=== PATIENT | female | born 1975 | race Two or more races ===

== ENCOUNTER 2017-10-06 22:03 | Emergency (ER) | payer MEDICAID ==
[~2017-10-06] VITALS: Ht 157.5 cm; Wt 93.0 kg
[2017-10-06 22:58] LABS: Eosinophils # (auto) 0.1 uL; Hemoglobin 9.3 g/dL (12.2-16.2)
[2017-10-06 23:01] LABS: Basophils # (auto) 0 uL; Basophils % (auto) 0.5 % (0.0-2.0); Eosinophils % (auto) 1.4 % (0.0-7.0); Hematocrit 29.8 % (36.0-46.0); Lymphocytes # (auto) 3.1 uL; Lymphocytes % (auto) 36.4 % (10.0-50.0); Mean Corpuscular Hemoglobin 20.3 pg (28.0-32.0); Mean Corpuscular Hgb Conc. 31.3 g/dL (32.0-36.0); Mean Corpuscular Volume 65.1 fL (80.0-100.0); Monocytes # (auto) 0.8 uL; Neutrophils # (auto) 4.5 uL; Neutrophils % (auto) 52.7 % (37.0-80.0); Nucleated Red Blood Cells % 0.2 %; Platelet Count (auto) 510 10^3/uL (140-450); Red Blood Cells 4.58 10^6/uL (4.0-5.20); Red Cell Distribution Width 19.9 % (11.8-14.3); White Blood Cell 8.6 10^3/uL (4.4-10.8)
[2017-10-06 23:05] LABS: Urine WBC None Seen /hpf (0 - 5)
[2017-10-06 23:15] LABS: Albumin 3.4 g/dL (3.4-5.0); Anion Gap 8 (5-15); Aspartate Aminotransferase 22 U/L (15-37); BUN/Creatinine Ratio 30.2; Blood Urea Nitrogen 19 mg/dL (7-18); Calcium 8.5 mg/dL (8.5-10.1); Carbon Dioxide 24 mmol/L (21-32); Chloride 109 mmol/L (98-107); GFR African American 135 mL/min; GFR Non-African American 111 mL/min; Glucose 93 mg/dL (74-106); Potassium 3.7 mmol/L (3.5-5.1); Sodium 141 mmol/L (136-145)
[2017-10-06 23:20] LABS: Alanine Aminotransferase 26 U/L (13-56); Alkaline Phosphatase 65 U/L (45-117); Bilirubin, Total 0.2 mg/dL (0.2-1.0); Total Protein 6.9 g/dL (6.4-8.2)
[2017-10-06 23:41] LABS: Urine Bacteria NONE SEEN /hpf (None Seen); Urine Blood 3+ /uL (Negative)
[2017-10-06 23:42] LABS: Urine Specific Gravity 1.041 (1.001-1.035)
[2017-10-07] MEDS ORDERED: MORPHINE SULF INJ 2 MG/ML SYRINGE 1ML IV ONE (03:00)
[2017-10-07] MEDS ORDERED: ONDANSETRON HCL 4 MG/2 ML VIAL IV ONE (03:00)
[2017-10-07 03:59] VITALS: BP 107/64
[2017-10-07] MEDS ORDERED: ACETAMINOPHEN/CODEINE#3 (300/30mg) TAB PO ONE (05:15)
== END 2017-10-07 05:56 | disposition home or self-care (01) ==
LOC: ER 22:19
DX: N20.0 Calculus of kidney (principal); R11.10 Vomiting, unspecified
CPT/HCPCS: 36415; 74176; 80053; 81001; 81025; 84484; 85025; 96374; 96375; 99285; J2270; J2405

== ENCOUNTER 2024-08-24 12:00 | Emergency (ER) | payer MEDICAID ==
[~2024-08-24] VITALS: Ht 157.5 cm; Wt 100.0 kg
--- NOTE | 2024-08-24 12:24 | ED.PDOC ---
Psychiatric HPI Comments 48 y.o female with PMHx of depression and anxiety, presents to the ED via EMS s/p Overdose today. EMS reports patient took multiple tablets of her medication today due to her son's arguing at home today. Patient reports no HI or SI but states " I just wanted to forget everything". Patient presents drowsy and lethargic. Patient took 10 x 50mg tablets of Tradazone. EMS called poison control who advised to observe patient but no charcoal activation due to drowsiness at this time. Patient denies any previous history of HI or SI. No other symptoms reported. Chief Complaint: Overdose Time Seen by MD: 12:12 Reviewed Notes: Nurses Notes, Transportation Project Manager Notes, Medications, Allergies Information Source: Patient, Emergency Med Personnel Mode of Arrival: EMS Severity: Able to Care for Self Severity of Pain: None Severity of Mental Status: Moderate Severity of Symptoms: Moderate Timing: Hours Duration: Since onset Presents with: Depression, Anxiety Ingestion: Intentional Circumstance: None Current substance abuse: None Stressors: Family History of: Depression, Anxiety Associated signs and symptoms: Anxiety Past Medical History PAST MEDICAL HISTORY: Anxiety, Depression Surgical History: (3) [employer] History: Ovarian Cysts, Uterine Fibroids Family History Family History: Unknown Social History Smoker: Non-Smoker Alcohol: Denies ETOH Use Drugs: Denies Drug Use Lives In: Home Constitutional: denies: chills, diaphoresis, fatigue, fever, malaise, sweats, weakness, others EENTM: denies: blurred vision, double vision, ear bleeding, ear discharge, ear drainage, ear pain, ear ringing, eye pain, eye redness, hearing loss, mouth pain, mouth swelling, nasal discharge, nose bleeding, nose congestion, nose pain, photophobia, tearing, throat pain, throat swelling, voice changes, others Respiratory: denies: cough, hemoptysis, orthopnea, SOB at rest, shortness of breath, SOB with excertion, stridor, wheezing, others Cardiovascular: denies: chest pain, dizzy spells, diaphoresis, Dyspnea on exertion, edema, irregular heart beat, left arm pain, lightheadedness, palpitations, PND, syncope, others Gastrointestinal: denies: abdomen distended, abdominal pain, blood streaked bowels, constipated, diarrhea, dysphagia, difficulty swallowing, hematemesis, melena, nausea, poor appetite, poor fluid intake, rectal bleeding, rectal pain, vomiting, others Genitourinary: denies: abnormal vagina bleeding, burning, dyspareunia, dysuria, flank pain, frequency, hematuria, incontinence, pain, , vagina discharge, urgency, others Neurological: denies: dizziness, fainting, headache, left sided numbness, left sided weakness, numbness, paresthesia, pre-existing deficit, right sided numbness, right sided weakness, seizure, speech problems, tingling, tremors, weakness, others Musculoskeletal: denies: back pain, gout, joint pain, joint swelling, muscle pain, muscle stiffness, neck pain, others Integumetry: denies: bruises, change in color, change in hair/nails, dryness, laceration, lesions, lumps, rash, wounds, others Allergic/Immunocompromised: denies: Difficulty Healing, Frequent Infections, Hives, Itching, others Hematologic/Lymphatic: denies: anemia, blood clots, easy bleeding, easy bruising, swollen glands, others Endocrine: denies: excessive hunger, excessive sweating, excessive thirst, excessive urination, flushing, intolerance to cold, intolerance to heat, unexplained weight gain, unexplained weight loss, others Psychiatric: reports: anxiety, depression; denies: bipolar disorder, hopeless, panic disorder, schizophrenia, sleepless, suicidal, others All Other Systems: Reviewed and Negative Physical Exam General Appearance: No Apparent Distress HEENT: Normal ENT Inspection, Pharynx Normal, TMs Normal Neck: Full Range of Motion, Non-Tender, Normal, Normal Inspection Respiratory: Chest Non-Tender, Lungs Clear, No Accessory Muscle Use, No Respiratory Distress, Normal Breath Sounds Cardiovascular: No Edema, No JVD, No Murmur, No Gallop, Normal Peripheral Puls es, Regular Rate/Rhythm Breast Exam: Deferred Gastrointestinal: No Organomegaly, Non Tender, No Pulsatile Mass, Normal Bowel Sounds, Soft Genitalia: Deferred Pelvic: Deferred Rectal: Deferred Extremities: No calf tenderness, Normal capillary refill, Normal inspection, Normal range of motion, Non-tender, No pedal edema Musculoskeletal : Apperance: Normal Neurologic: Alert, gun mechanic II-XII nml as Tested, No Motor Deficits, Normal Affect, Normal Mood, No Sensory Deficits Cerebellar Function: Normal Reflexes: Normal Skin: Dry, Normal Color, Warm Lymphatic: No Adenopathy EKG EKG : Pulse Rate (adult): 70 [place]: Normal Cardiac Rhythm: NSR ST: Normal Was a procedure done? Was a procedure done?: No Psych Differential Dx Psych. Differential Dx: Anxiety, Depression OD Differential Dx: Anxiety X-Ray, Labs, Meds, VS Vital Signs Date Time Temp Pulse Resp B/P (MAP) Pulse Ox O2 Delivery O2 Flow Rate FiO2 08/24/24 18:00 84 19 102/69 (80) 96 08/24/24 16:00 85 17 107/62 (77) 94 08/24/24 14:00 71 12 117/49 (71) 96 08/24/24 13:30 77 18 96 Room Air* 0 21 08/24/24 12:34 97.8 77 18 113/57 (75) 96 97.8 08/24/24 12:26 70 08/24/24 12:24 70 08/24/24 12:23 97.7 88 12 123/69 (87) 94 97.7 Lab Test 08/24/24 12:42 Range/Units White Blood Count 6.7 4.4-10.8 10^3/uL Red Blood Count 5.43 H 4.0-5.20 10^6/uL Hemoglobin 14.7 12.2-16.2 g/dL Hematocrit 45.4 36.0-46.0 % Mean Corpuscular Volume 83.7 80.0-100.0 fL Mean Corpuscular Hemoglobin 27.0 L 28.0-32.0 pg Mean Corpuscular Hemoglobin Concent 32.3 32.0-36.0 g/dL Red Cell Distribution Width 15.5 H 11.8-14.3 % Platelet Count 371 140-450 10^3/uL Mean Platelet Volume 7.2 6.9-10.8 fL Neutrophils (%) (Auto) 59.7 37.0-80.0 % Lymphocytes (%) (Auto) 31.2 10.0-50.0 % Monocytes (%) (Auto) 7.7 0.0-12.0 % Eosinophils (%) (Auto) 1.0 0.0-7.0 % Basophils (%) (Auto) 0.4 0.0-2.0 % Neutrophils # (Auto) 4.0 1.6-8.6 10 ^3/uL Lymphocytes # (Auto) 2.1 0.4-5.4 10 ^3/uL Monocytes # (Auto) 0.5 0-1.3 10 ^3/uL Eosinophils # (Auto) 0.1 0-0.8 10 ^3/uL Basophils # (Auto) 0 0-0.2 10 ^3/uL Nucleated Red Blood Cells 0.1 % Sodium Level 141 136-145 mmol/L Potassium Level 4.3 3.5-5.1 mmol/L Chloride Level 105 98-107 mmol/L Carbon Dioxide Level 26 20-31 mmol/L Anion Gap 10 5-15 Blood Urea Nitrogen 6 L 9-23 mg/dL Creatinine 0.70 0.550-1.02 mg/dL Glomerular Filtration Rate Calc 107 >90 mL/min BUN/Creatinine Ratio 8.6 L 10.0-20.0 Serum Glucose 86 74-106 mg/dL Calcium Level 10.9 H 8.7-10.4 mg/dL Salicylates Level < 3.0 -30 mg/dL Acetaminophen Level < 2.0 L 10.0-20.0 UG/ML Plasma/Serum Blood Alcohol < 3.0 <10 mg/dL The patient is now considered to be medically cleared for evaluation The patient's CBC is within normal limits The chemistry panel is within normal limits The salicylate and acetaminophen level are negative The alcohol level is negative The patient was evaluated by the psychiatrist. They have cleared her to be discharged for outpatient follow up The patient is discharged Time of 1ST Reevaluation: 13:00 Reevaluation 1ST: Unchanged Time of 2ND Reevaluation: 19:43 Reevaluation 2ND: Improved Patient Education/Counseling: Diagnosis, Treatment, Prognosis Family Education/Counseling: Diagnosis, Treatment, Prognosis Departure 1 Departure Time of Disposition: 19:43 Impression: Primary Impression: Acute anxiety Additional Impression: Overdose Qualified Codes: T50.904A - Poisoning by unspecified drugs, medicaments and biological substances, undetermined, initial encounter Disposition: HOME / SELF CARE / HOMELESS Condition: Fair Discharged With: Self, Relative Critical Care Note Critical Care Time?: No Stability Stability form required: No I personally scribed for LORI BROOKS MD ([email or web address]) on 08/24/24 at 12:24. Electronically submitted by Hanny Pascual ([facility]). LORI BROOKS MD Aug 24, 2024 12:24
--- NOTE | 2024-08-24 12:25 | ECG ---
[facility] Test Date: 2024-08-24 Test Time: 12:24:30 Pat Name: MICHAEL CASTILLO Department: ED Room: Gender: F Health Teacher: FRANCIA : 1975 Requested By: LORI BROOKS Order Number: [id number] Reading MD: Laurent Santillan Measurements Intervals Bieber Rate: 70 P: 79 SD: 171 QRS: 63 QRSD: 88 T: 2 QT: 390 QTc: 421 Interpretive Statements Sinus rhythm Low voltage, precordial leads Borderline T abnormalities, anterior leads Electronically Signed On 08-25-2024 19:31:49 PDT by Laurent Santillan Please click the below link to view image of tracing.
[2024-08-24 12:34] VITALS: TEMP 97.8
[2024-08-24 13:30] VITALS: PULSE 77; RESP 18; O2SAT 96
[2024-08-24 13:35] LABS: Hematocrit 45.4 % (36.0-46.0); Hemoglobin 14.7 g/dL (12.2-16.2); Mean Corpuscular Hemoglobin 27.0 pg (28.0-32.0); Mean Corpuscular Volume 83.7 fL (80.0-100.0); Nucleated Red Blood Cells % 0.1 %
[2024-08-24 13:39] LABS: Chloride 105 mmol/L (98-107); Potassium 4.3 mmol/L (3.5-5.1); Sodium 141 mmol/L (136-145)
[2024-08-24 13:40] LABS: Anion Gap 10 (5-15); Carbon Dioxide 26 mmol/L (20-31)
[2024-08-24 13:45] LABS: Calcium 10.9 mg/dL (8.7-10.4); Glucose 86 mg/dL (74-106)
[2024-08-24 13:46] LABS: BUN/Creatinine Ratio 8.6 (10.0-20.0); Blood Urea Nitrogen 6 mg/dL (9-23)
[2024-08-24 13:51] LABS: Acetaminophen < 2.0 UG/ML (10.0-20.0); Salicylate < 3.0 mg/dL (-30)
--- NOTE | 2024-08-24 18:59 | DVHINCON2 ---
Date of Service if different f: Aug 24, 2024 Time of Service: 18:58 Consult Consult Note PSYCHIATRY ED NEW CONSULT: HPI: 48 yo pt with PPH of depression and anxiety presents to ED BIBA for safety, psychiatric stabilization, and possible med initiation/optimization in setting of intentional drug OD. Psychiatry consulted for safety evaluation and recommendations in context of current presentation Pt reports feeling anxious/panic like symptoms after becoming "emotionally overwhelmed" due to some strained r/s with her two oldest sons and feeling that her daughter is dismissive of pt's request and worries about her (daughter) poor life choices. Hence pt blamed self for "not being a good mother to my children" and impulsively ingested about 10 tabs of rx'd Trazodone 50 mg and ~5 tabs of rx'd Paxil 40 mg qd. Pt adamantly denies ingestion as suicide attempt/gesture or intention to self harm. Pt admits ingestion, although intentional, was due to difficulty controlling emotions and unhealthy coping mechanism related to argument I was just trying to feel calm and go to sleep. Pt does express some remorse/regret for ingestion that was dumb what i did, i am not going to do it again Currently denies depressed mood, hopelessness, helplessness, isolation, negative thoughts, or anhedonia. Denies anxiety/panic/OCD/PTSD symptoms. Also denies AVH/paranoia/catatonic/perceptual disturbances. Sleep/appetite/energy/conc relatively WNL. Adamantly denies SI/HI. No overt manic, psychotic, MDD, cognitive, dissociative, panic, OCD, PTSD, or somatic symptoms noted. Overall appears future oriented/goal directed. Does have active outpt MH services established at this time (both psychiatry and therapy services) with upcoming appts later this month. Currently rx'd Paxil 40 mg qd, Wellbutrin XL 150 mg qd, and Trazodone 50 mg qhs, overall med compliant Denies ETOH, THC or IDU Single/has B, unemployed, lives with 4 teenage children, some support system noted (immediate family) Unknown trauma hx. Denies FH of psych hospitalizations, suicide attempts, or completed suicides No acute medical/chronic pain issues, hx of seizures/TBI, or recent head injuries, NKDA Denies hx of SI/SIB/SA although hx of PSG x 1 in 2021 via impulsive drug OD in context of r/s strains with BF. No prior psych hospitalizations/5150 holds. Denies history of violence, aggression, or assaultive behaviors. Denies recent hx of impulsivity, attention seeking behaviors, anger outbursts, emotional dysregulation, mood reactivity, or engaging in risky behaviors. Denies any legal problems. Does not have access to firearms Currently denies SI/HI/AVH. Identifies self/family as PPF. No acute safety concerns noted during encounter MSE: General Appearance/Behavior: Alert/awake; appears stated age, overweight, fair grooming/hygiene; calm/polite and cooperative, fair eye contact, no PMA/PMR Speech: coherent, rrr Thought Process: L/L/GD Thought Content: Abnormal Thoughts/Perceptions: denies dissociative symptoms Homicidality / Violent Thoughts: adamantly denies HI Suicidality: adamantly denies SI Hallucinations: denies AVTH Delusions: denies paranoia, persecutory, or grandiose delusions Obsessions /compulsions: None Judgment/Insight: improved/fair Mood & Affect: better with mood-congruent, minimally restricted/appropriate Orientation: oriented x 3 Attention/Concentration: appears intact Cognition: grossly intact Assessment: 48 yo pt with PPH of depression and anxiety presents to ED BIBA for safety, psychiatric stabilization, and possible med initiation/optimization in setting of intentional drug OD Currently denies SI/HI/AVH. Linear and appears future oriented/goal directed in thought with improved J/I. Identifies several protective factors including a desire to live, family support, spirituality, etc. No hx of SI/SA/SIB or prior psych hospitalizations is reassuring. Pt medically cleared Presenting MH symptoms appear more secondary to difficulty controlling emotions and ineffective coping mechanisms in context of acute psychosocial stressors (see HPI) with minimal interference in daily functioning. Collateral reports f rom family member (adult son at bedside) also support that pt has not made any recent/ongoing suicidal statements and did not express any safety concerns Does not presently show any signs of immediate danger to self/others or GD that would necessitate 5150 or involuntary psych admission. However offered voluntary psych hospitalization but pt declined. Also declined further ED obser vation/reevaluation. No acute safety concerns noted. Acute suicide risk appears nonexistent to relatively low Pts symptoms should be managed safely in an outpatient setting - pt currently does have psychiatrist/therapist out in community and Plans to follow up over next several weeks for ongoing med management/psychotx Currently rx'd Paxil 40 mg qd, Wellbutrin XL 150 mg qd, and Trazodone 50 mg qhs. No indication to change current med regimen Primary Diagnosis: Adjustment disorder with mixed emotions and doc. Mood disorder unspecified Plan: Does not warrant involuntary inpatient psychiatric hospitalization or 5150 hold No acute safety concerns Pt can be safely discharged back to current residence Resume current outpatient psychotropics - med compliance and proper med use emphasized No med changes or additional meds needed at this time Risks/benefits/alternative treatments discussed, informed consent provided by pt Supportive tx provided, discussed safety plan with pt Encouraged mindfulness techniques (reading, walking, meditation, journaling, exercise, deep breathing) during times of stress Pt plans to f/u with outpatient MH providers over next several weeks for ongoing therapy/med management Encouraged f/u with PCP for routine medical/preventive care Instructed pt to call/text [phone] or return to ED if MH symptoms worsen or new onset SI/HI upon discharge Pt verbalized understanding and is receptive to above tx plan This case was discussed with ED nurse/provider and all parties in agreement with above tx plan Chao Blevins MD Plan discussed with: Patient CHAO BLEVINS MD Aug 24, 2024 18:59
[2024-08-24 19:50] VITALS: BP 103/53; PULSE 73; PULSE 79; RESP 17; O2SAT 96; O2SAT 97
== END 2024-08-24 20:20 | disposition home or self-care (01) ==
LOC: EDBD 12:00 → ER 12:00
DX: T65.91XA Toxic effect of unspecified substance, accidental (unintentional), initial encounter (principal); F43.23 Adjustment disorder with mixed anxiety and depressed mood; E66.3 Overweight; F32.A Depression, unspecified; Z98.890 Other specified postprocedural states; Z79.899 Other long term (current) drug therapy; Z71.82 Exercise counseling; Z68.41 Body mass index [BMI] 40.0-44.9, adult; Z65.8 Other specified problems related to psychosocial circumstances; Y92.89 Other specified places as the place of occurrence of the external cause
CPT/HCPCS: 36415; 80048; 80320; 80329; 85025; 93005